=== PATIENT | male | born 1985 | race Caucasian/White ===

== ENCOUNTER 2018-02-28 19:57 | Emergency (ER) | payer OTHER ==
[~2018-02-28] VITALS: Ht 167.6 cm; Wt 83.9 kg
[~2018-02-28 19:57] MED LIST: AMOXICILLIN 50500 M1 PO; HYDROCODONE-AP1 EAC6 PO; IBUPROFEN 800800 M1 PO; MEDROLDOSEPACK PO
[2018-02-28] MEDS ORDERED: BACTRIM DS TAB1 EACH PO (20:48)
[2018-02-28] MEDS ORDERED: DOXYCYCLINE 10100 MG PO (20:48)
[2018-02-28] MEDS ORDERED: IBUPROFEN 600600 M1 PO (20:48)
[2018-02-28 20:54] VITALS: BP 122/67
== END 2018-02-28 20:55 | disposition home or self-care (01) ==
LOC: M.ERS 19:57
DX: L02.414 Cutaneous abscess of left upper limb (principal)